=== PATIENT | female | born 1995 | race Caucasian/White ===

== ENCOUNTER 2017-04-04 17:39 | Emergency (ER) | payer SELFPAY ==
[~2017-04-04] VITALS: Ht 167.6 cm; Wt 65.9 kg
[2017-04-04 18:00] VITALS: BP 116/69; PULSE 61; TEMP 98.6
[2017-04-04] MEDS ORDERED: LEXAPRO20 MG PO (18:03)
[2017-04-04] MEDS ORDERED: MELATONIN5 M1 SL (18:04)
[2017-04-04] MEDS ORDERED: VITAMIN D3400 I1 PO (18:04)
== END 2017-04-04 19:30 | disposition home or self-care (01) ==
LOC: COL.ER 17:39
DX: S63.8X1A Sprain of other part of right wrist and hand, initial encounter (principal); J45.909 Unspecified asthma, uncomplicated; Y92.219 Unspecified school as the place of occurrence of the external cause; F32.9 Major depressive disorder, single episode, unspecified; F17.210 Nicotine dependence, cigarettes, uncomplicated; W22.01XA Walked into wall, initial encounter

== ENCOUNTER 2017-05-20 20:35 | Emergency (ER) | payer SELFPAY ==
[~2017-05-20] VITALS: Ht 167.6 cm; Wt 65.9 kg
[~2017-05-20 20:35] MED LIST: LEXAPRO20 MG PO; MELATONIN5 M1 SL; VITAMIN D3400 I1 PO
[2017-05-20 20:37] VITALS: BP 126/74; TEMP 97.5
[2017-05-20] MEDS ORDERED: FLEXERIL 1010 MG/TAB PO (22:30)
[2017-05-20] MEDS ORDERED: NAPROSYN500 MG PO (22:30)
[2017-05-20 22:45] VITALS: PULSE 76
== END 2017-05-20 22:46 | disposition home or self-care (01) ==
LOC: COL.ER 20:35
DX: S39.012A Strain of muscle, fascia and tendon of lower back, initial encounter (principal); F17.210 Nicotine dependence, cigarettes, uncomplicated; W17.89XA Other fall from one level to another, initial encounter; Y92.830 Public park as the place of occurrence of the external cause